=== PATIENT | male | born 1980 | race Caucasian/White ===

== ENCOUNTER 2017-07-29 15:26 | Emergency (ER) | payer SELFPAY ==
[~2017-07-29] VITALS: Ht 182.9 cm; Wt 97.0 kg
[~2017-07-29 15:26] MED LIST: KEFLEX500 MG PO; NAPROSYN375 MG PO; PENICILLN VK250 MG OR; TRAMADOL HCL50 MG PO
[2017-07-29] MEDS ORDERED: ZPAK PO (16:04)
[2017-07-29 16:06] VITALS: BP 136/90
== END 2017-07-29 16:22 | disposition home or self-care (01) | DRG 203 ==
LOC: ED 15:26
DX: J40 Bronchitis, not specified as acute or chronic (principal); F17.210 Nicotine dependence, cigarettes, uncomplicated

== ENCOUNTER 2021-04-19 19:55 | Emergency (ER) | payer OTHER ==
[~2021-04-19] VITALS: Wt 113.7 kg
[~2021-04-19 19:55] MED LIST changes: +ZPAK PO
[2021-04-19] MEDS ORDERED: AMOXICILLIN500 M2 PO (20:10)
[2021-04-19] MEDS ORDERED: VOLTAREN75 MG PO (20:10)
[2021-04-19 20:30] VITALS: BP 163/90
== END 2021-04-19 20:30 | disposition home or self-care (01) ==
LOC: ED 19:55
DX: K02.9 Dental caries, unspecified (principal)